=== PATIENT | female | born 1980 | race Caucasian/White ===

== ENCOUNTER 2020-06-30 16:20 | Outpatient (NON) | payer BC, SELFPAY | END 2020-06-30 16:21 | PROVIDERS: Visit Provider Nurse Practitioner Family | DX: N39.0 Urinary tract infection, site not specified (principal) | CPT/HCPCS: 87077; 87086; 87088; 87186 ==

== ENCOUNTER 2021-12-05 14:22 | Outpatient (RCR) | payer BC, SELFPAY ==
--- NOTE | 2021-12-05 15:55 | PTOPEVAL ---
PHYSICAL THERAPY EVALUATION AND PLAN OF CARE 12-05-21 Thank you for referring Fatmata Valdez to [facility].? The evaluation was completed today and she reports she wants to do the exercises at home and not return for any further treatment. Her chart will be kept open in case she wants to return for treatment, plan of treatment, 0-1 x/week for 4 weeks. Please review, sign, date and return this plan of care ARTURO. I agree with and certify that the following plan of care is medically necessary. Referring Physician Date Attending Provider: Jed Ross DO Past Medical History Source of Past Medical History Patient Neurological History Hx Neurological Disorders No Significant History Cardiovascular History Hx Hypertension Yes: with ;monitor at home PRN increase Respiratory History Hx COVID-19 Yes: fatigue with residual effects Gastrointestinal History Hx Cholecystectomy Yes Musculoskeletal History Hx Arthritis Yes: B knee, B shoulders; Hx Other Musculoskeletal Disorders Yes: pain in both hips; L foot pain & plantar fasciitis; Endocrine History Hx Endocrine Disorders No Significant History Other History Hx Other Medical Conditions Yes: obesity Evaluation Information Diagnosis L knee pain Onset Jul 2021 Subjective Information was bowling, onset of pain Query Text:As Reported By Patient/ with throwing the bowling ball Family ; rest and pain eased, return to regular activities; few weeks later, stepped wrong, going up stairs and knee pain returned; eventually went to dr--told her quad muscle torn, wear knee brace/ metal support on side, velcro; did not have any imaging, but had a bump that is less now; knee is better and need to strengthen it now; Prior Level of Function Activity Level (Last 3 Months) 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
--- NOTE | 2022-01-16 11:53 | PCPTNOTE ---
PHYSICAL THERAPY DISCHARGE REPORT 01-16-22 Attending Provider: Jed Ross DO Patient:Fatmata Valdez Date of :1980 Ms. Valdez has not returned for any further treatments since the evaluation on 12/05/2021, therefore she will be discharged at this time. The goals were not addressed. Thank you for referring Fatmata to [facility]. Please review, sign, date and return this discharge summary ARTURO. I have been updated about the patient's current status and I agree with discharge from the above service at this time. Referring Physician Date
== END 2022-02-20 12:42 | disposition home or self-care (01) ==
LOC: ANHPT 14:22
PROVIDERS: PCP Nurse Practitioner Family; Visit Provider Family Medicine
DX: M25.562 Pain in left knee (principal); M25.362 Other instability, left knee
CPT/HCPCS: 97161